=== PATIENT | female | born 1980 | race Caucasian/White ===

== ENCOUNTER 2021-01-07 11:50 | Inpatient (IN) | payer OTHER ==
[2021-01-07] MEDS ORDERED: Sodium Chloride 0.9% 10 ML Syringe FLUSH PRN ×2 (12:48→17:27)
[2021-01-07] MEDS ORDERED: HYDROmorphone 0.5 MG/0.5 ML Syringe IVPUSH ONE ×2 (12:48→15:22)
--- NOTE | 2021-01-07 12:49 | EDM.PDOC ---
ED HPI GENERAL MEDICAL PROBLEM - General Chief Complaint: Abdominal Pain Stated Complaint: ABDOMINAL PAIN Time Seen by Provider: 01/07/21 12:40 Source of Information: Reports: Patient. Denies: Old Records History Limitations: Reports: Other (no old records) - History of Present Illness INITIAL COMMENTS - FREE TEXT/NARRATIVE: 40 yo female presents with progressive abdominal pain over the past couple of days. No fever. Pain is diffuse, but worse in the lower abdomen. No urinary sx's. Stools are small and a bit on loose side. No pHx of any abdominal surgeries. Is visiting from out of town. Is taking acetaminophen for pain. Has nausea without vomiting. Onset: Gradual Onset Date: 01/04/21 Duration: Day(s):, Getting Worse Location: Reports: Abdomen Quality: Reports: Ache Severity: Moderate Improves with: Reports: Rest Worsens with: Reports: Movement Context: Reports: Other (See HPI) Associated Symptoms: Reports: Nausea/Vomiting (no vomiting). 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 Denies: Black Stool, Bloody Stool, Constipation, Decreased Appetite, Distension, Hematemesis, Vomiting : Reports: No Symptoms Musculoskeletal: Reports: No Symptoms Skin: Reports: No Symptoms ED EXAM, GI/ABD - Physical Exam Exam: See Below Exam Limited By: No Limitations General Appearance: Alert, WD/WN, No Apparent Distress Eyes: Bilateral: Normal Appearance Ears: Normal External Exam, Normal Canal, Hearing Grossly Normal Nose: Normal Inspection, No Blood Throat/Mouth: Normal Inspection, Normal Lips, Normal Oropharynx, Normal Voice, No Airway Compromise Head: Atraumatic, Normocephalic Neck: Normal Inspection Respiratory/Chest: No Respiratory Distress, Lungs Clear, Normal Breath Sounds, No Accessory Muscle Use Cardiovascular: Regular Rate, Rhythm, No Edema GI/Abdominal Exam: Normal Bowel Sounds, Soft, No Distention, Guarding, Rebound, Tender (diffusely). No: Non-Tender, Distended, Rigid Back Exam: Normal Inspection Extremities: Normal Inspection, Normal Range of Motion, Non-Tender, No Pedal Edema Neurological: Alert, Oriented, CN II-XII Intact, Normal Cognition, No Motor/Sensory Deficits Psychiatric: Normal Affect, Normal Mood Skin Exam: Warm, Dry, Intact, Normal Color, No Rash Course - Vital Signs Text/Narrative:: Dr. Felix called @ 1640h Last Recorded V/S: Last Vital Signs Temp 36.6 C 01/07/21 12:45 Pulse 92 01/07/21 16:00 Resp 18 01/07/21 12:45 BP 120/71 01/07/21 16:00 Pulse Ox 98 01/07/21 12:45 - Orders/Labs/Meds Orders: Active Orders 24 hr Category Date Time Status CHLAMYDIA/GC AMPLIFICATION Routine Lab 01/07/21 16:37 Received CULTURE GENITAL [RM] Stat Lab 01/07/21 16:33 Received Sodium Chloride 0.9% [Normal Saline] 90 ml Med 01/07/21 13:30 Active IV ASDIRECTED Sodium Chloride 0.9% [Saline Flush] Med 01/07/21 12:48 Active 10 ml FLUSH ASDIRECTED PRN cefOXitin [Mefoxin] 2 gm Med 01/07/21 16:32 Active Sodium Chloride 0.9% [Normal Saline] 50 ml IV ONETIME Saline Lock Insert [OM.PC] Routine Oth 01/07/21 12:48 Ordered Medication Orders Sodium Chloride (Normal Saline) 90 mls @ 3.5 mls/sec IV ASDIRECTED RENEE Last Admin: 01/07/21 13:39 Dose: 3.5 mls/sec Documented by: DECRMIC Cefoxitin Sodium 2 gm/ Sodium (Chloride) 50 mls @ 100 mls/hr IV ONETIME ONE Stop: 01/07/21 17:01 Sodium Chloride (Sodium Chloride 0.9% 10 Ml Syringe) 10 ml FLUSH ASDIRECTED PRN PRN Reason: Keep Vein Open Last Admin: 01/07/21 13:09 Dose: 10 ml Documented by: HECTOR Labs: Laboratory Tests 01/07/21 01/07/21 01/07/21 Range/Units 13:04 13:04 14:51 WBC 17.2 H (4.5-11.0) K/uL RBC 4.72 (3.30-5.50) M/uL Hgb 13.5 (12.0-15.0) g/dL Hct 41.2 (36.0-48.0) % MCV 87 (80-98) fL MCH 29 (27-31) pg MCHC 33 (32-36) % Plt Count 202 (150-400) K/uL Sodium 134 L (140-148) mmol/L Potassium 3.6 (3.6-5.2) mmol/L Chloride 98 L (100-108) mmol/L Carbon Dioxide 27 (21-32) mmol/L Anion Gap 12.6 (5.0-14.0) mmol/L BUN 10 (7-18) mg/dL Creatinine 0.9 (0.6-1.0) mg/dL Est Cr Clr Drug Dosing 85.50 mL/min Estimated GFR (MDRD) > 60 (>60) Glucose 101 (74-106) mg/dL Calcium 8.9 (8.5-10.1) mg/dL Total Bilirubin 1.0 (0.2-1.0) mg/dL AST 9 L (15-37) U/L ALT 19 (12-78) U/L Alkaline Phosphatase 84 (46-116) U/L C-Reactive Protein 30.55 H (0.0-0.3) mg/dL Total Protein 6.9 (6.4-8.2) g/dL Albumin 3.3 L (3.4-5.0) g/dL Globulin 3.6 H (2.3-3.5) g/dL Albumin/Globulin Ratio 0.9 L (1.2-2.2) Urine Color Yellow (YELLOW) Urine Appearance Clear (CLEAR) Urine pH 5.5 (5.0-8.0) Ur Specific [place] 1.010 (1.008-1.030) Urine Protein Negative (NEGATIVE) mg/dL Urine Glucose (UA) Negative (NEGATIVE) mg/dL Urine Ketones 15 H (NEGATIVE) mg/dL Urine Occult Blood Moderate H (NEGATIVE) Urine Nitrite Negative (NEGATIVE) Urine Bilirubin Negative (NEGATIVE) Urine Urobilinogen 0.2 (0.2-1.0) EU/dL Ur Leukocyte Esterase Trace H (NEGATIVE) Urine RBC 10-20 H (0-5) Urine WBC 5-10 H (0-5) Ur Epithelial Cells Many Amorphous Sediment Few Urine Bacteria Moderate Urine Mucus Not seen Meds: Medications Generic Name Dose Route Start Last Admin Trade Name Audrey PRN Reason Stop Dose Admin Sodium Chloride 90 mls @ 3.5 mls/sec 01/07/21 13:30 01/07/21 13:39 Normal Saline IV 3.5 mls/sec ASDIRECTED RENEE Administration Cefoxitin Sodium 2 gm/ Sodium 50 mls @ 100 mls/hr 01/07/21 16:32 Chloride IV 01/07/21 17:01 ONETIME ONE Sodium Chloride 10 ml 01/07/21 12:48 01/07/21 13:09 Sodium Chloride 0.9% 10 Ml Syringe FLUSH 10 ml ASDIRECTED PRN Administration Keep Vein Open Discontinued Medications Generic Name Dose Route Start Last Admin Trade Name Audrey PRN Reason Stop Dose Admin Doxycycline Hyclate 100 mg 01/07/21 16:33 Doxycycline 100 Mg Cap PO 01/07/21 16:34 ONETIME ONE Hydromorphone HCl 0.5 mg 01/07/21 12:48 01/07/21 13:09 Hydromorphone 0.5 Mg/0.5 Ml Syringe IVPUSH 01/07/21 12:49 0.5 mg ONETIME ONE Administration Hydromorphone HCl 0.5 mg 01/07/21 15:22 01/07/21 15:26 Hydromorphone 0.5 Mg/0.5 Ml Syringe IVPUSH 01/07/21 15:23 0.5 mg ONETIME ONE Administration Iopamidol 150 ml 01/07/21 13:30 01/07/21 13:39 Iopamidol 612 Mg/Ml 500 Ml Multipack Bottle IV 01/07/21 13:31 150 ml ONETIME ONE Administration Ketorolac Tromethamine 30 mg 01/07/21 16:29 Ketorolac 30 Mg/Ml Sdv IVPUSH 01/07/21 16:30 ONETIME ONE Ondansetron HCl 4 mg 01/07/21 12:51 01/07/21 13:04 Ondansetron 4 Mg Tab.Dis PO 01/07/21 12:52 4 mg ONETIME ONE Administration Simethicone 160 mg 01/07/21 15:21 01/07/21 15:26 Simethicone 80 Mg Tab.Chew PO 01/07/21 15:22 160 mg ONETIME ONE Administration - Radiology Interpretation Free Text/Narrative:: CT abd/pelvis with IV contrast- IMPRESSION : 1. Normal caliber appendix with no surrounding periappendiceal fat stranding. 2. Very minimal trace fluid or linear stranding in pelvis. Correlate with pelvic exam symptoms to exclude mild pelvic inflammatory disease. 3. Early fatty infiltration of the liver. 4. Epigastric abdominal wall hernia/diastasis. Please note that all CT scans at this facility use dose modulation, iterative reconstruction, and/or weight-based dosing when appropriate to reduce radiation dose to as low as reasonably achievable. Dictated by Uriel Nuno MD @ 01/07/2021 2:34:28 PM (Electronic Signature) - Re-Assessments/Exams Free Text/Narrative Re-Assessment/Exam: 01/07/21 16:34 When no clinical answer with CT scan, did a pelvic exam that showed much cervical motion tenderness. Speculum exam revealed jean paul pus from her cervix. Cultures obtained and her Mirena IUD was removed. Cetoxitin 2 gm IV and Doxycycline 100 mg po ordered. Toradol 30 mg IV for pain relief. Departure - Departure Time of Disposition: 17:00 Disposition: Admitted As Inpatient 68 Condition: Fair Clinical Impression: PID (acute pelvic inflammatory disease) - Discharge Information *PRESCRIPTION DRUG MONITORING PROGRAM REVIEWED*: Not Applicable *COPY OF PRESCRIPTION DRUG MONITORING REPORT IN PATIENT MCKENZIE: Not Applicable Referrals: PCP,None [Primary Care Provider] - Forms: ED Department Discharge Sepsis Event Note (ED) - Evaluation Sepsis Screening Result: Possible Sepsis Risk - Focused Exam Vital Signs: Vital Signs Temp Pulse Resp BP Pulse Ox 01/07/21 16:00 92 120/71 01/07/21 12:45 36.6 C 101 H 18 130/85 98 01/07/21 12:39 36.6 C 101 H 18 130/85 98 - My Orders Last 24 Hours: My Active Orders 01/07/21 12:48 Sodium Chloride 0.9% [Saline Flush] 10 ml FLUSH ASDIRECTED PRN Saline Lock Insert [OM.PC] Routine 01/07/21 13:30 Sodium Chloride 0.9% [Normal Saline] 90 ml IV ASDIRECTED 01/07/21 16:32 cefOXitin [Mefoxin] 2 gm Sodium Chloride 0.9% [Normal Saline] 50 ml IV ONETIME 01/07/21 16:33 CULTURE GENITAL [RM] Stat 01/07/21 16:37 CHLAMYDIA/GC AMPLIFICATION Routine - Assessment/Plan Last 24 Hours: My Active Orders 01/07/21 12:48 Sodium Chloride 0.9% [Saline Flush] 10 ml FLUSH ASDIRECTED PRN Saline Lock Insert [OM.PC] Routine 01/07/21 13:30 Sodium Chloride 0.9% [Normal Saline] 90 ml IV ASDIRECTED 01/07/21 16:32 cefOXitin [Mefoxin] 2 gm Sodium Chloride 0.9% [Normal Saline] 50 ml IV ONETIME 01/07/21 16:33 CULTURE GENITAL [RM] Stat 01/07/21 16:37 CHLAMYDIA/GC AMPLIFICATION Routine
[2021-01-07] MEDS ORDERED: Ondansetron 4 MG Tab.DIS PO ONE (12:51)
[2021-01-07] MEDS ORDERED: Sodium Chloride 0.9% 90 ML IV SCH (13:30)
[2021-01-07] MEDS ORDERED: Iopamidol 612 MG/ML 500 ML Multipack Bottle IV ONE (13:30)
--- NOTE | 2021-01-07 14:35 | CRLCT ---
For Patients: As a result of the Century Cures Act, medical imaging exams and procedure reports are released immediately into your electronic medical record. You may view this report before your referring provider. If you have questions, please contact your health care provider. INDICATION : Elevated white blood cell count. Abdominal pain. TECHNIQUE : CT scan of the abdomen and pelvis. IV CONTRAST 150 cc, [id number]. COMPARISON: No comparison FINDINGS : Lung bases: Clear. Liver: Mild decreased attenuation. No mass. Gallbladder: No calcified gallstones. Spleen: Normal size. Pancreas: No suspicious mass or ductal dilatation. Adrenal glands: No suspicious mass. Kidneys: No mass lesion or hydronephrosis. Normal size and position. Bladder: No suspicious mass or abnormal wall thickening. GI tract: No abnormal wall thickening or dilatation. No mesenteric abnormality. Retroperitoneum: No adenopathy. No suspicious mass. Aorta and vessels: No aneurysmal dilatation. Pelvis: No mass, free fluid or adenopathy. Some very subtle fat stranding in the lower pelvis some trace fluid or thickening near the level of the uterus. Skeletal structures: No suspicious skeletal lesions. Miscellaneous: Diastasis of the rectus abdominus muscles. A ventral hernia or eventration is present containing fat but no bowel loops. An IUD is present within the endometrial cavity. The positioning is satisfactory. IMPRESSION : 1. Normal caliber appendix with no surrounding periappendiceal fat stranding. 2. Very minimal trace fluid or linear stranding in pelvis. Correlate with pelvic exam symptoms to exclude mild pelvic inflammatory disease. 3. Early fatty infiltration of the liver. 4. Epigastric abdominal wall hernia/diastasis. Please note that all CT scans at this facility use dose modulation, iterative reconstruction, and/or weight-based dosing when appropriate to reduce radiation dose to as low as reasonably achievable. Dictated by Uriel Nuno MD @ 01/07/2021 2:34:[address] Uriel Nuno @ Jan 07 2021 2:34PM
[2021-01-07] MEDS ORDERED: Simethicone 80 MG Tab.Chew PO ONE (15:21)
[2021-01-07] MEDS ORDERED: Ketorolac 30 MG/ML SDV IVPUSH ONE (16:29)
[2021-01-07] MEDS ORDERED: cefOXitin 2 GM in Sodium Chloride 0.9% 50 ML IV ONE (16:32)
[2021-01-07] MEDS ORDERED: Doxycycline 100 MG Cap PO ONE (16:33)
--- NOTE | 2021-01-07 16:54 | PCM.HP.2 ---
H&P History of Present Illness - General Date of Service: 01/07/21 Admit Problem/Dx: Admission Diagnosis/Problem Admission Diagnosis/Problem Abdominal pain Source of Information: Patient, Provider, RN Notes Reviewed History Limitations: Reports: No Limitations - History of Present Illness Initial Comments - Free Text/Narative: Ms. Clement is a 40-year-old woman who was admitted through the emergency department with abdominal pain and nausea secondary to pelvic inflammatory disease. She has not felt well over the past 2 days, during that period of time is developed progressive abdominal pain, nausea, and fever. Symptoms were very severe today so she presented to the emergency department for further evaluation. White blood cell count is elevated, but CT scan showed no obvious cause of symptoms other than mild inflammation in the pelvis. Pelvic exam was performed by Dr. Morris and did show jean paul pus coming from the cervix. She did have an IUD in place and this was removed at the time of pelvic exam. Cultures were obtained and she has been started on IV antibiotic therapy with cefoxitin and doxycycline. 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 Denies: Constipation, Diarrhea, Difficulty Swallowing, Hematemesis, Hematochezia, Melena, Vomiting Genitourinary: Reports: No Symptoms Musculoskeletal: Reports: No Symptoms Skin: Reports: No Symptoms Psychiatric: Reports: No Symptoms Neurological: Reports: No Symptoms Hematologic/Lymphatic: Reports: No Symptoms Immunologic: Reports: No Symptoms Exam - Exam Exam: See Below - Vital Signs Vital Signs: Last Vital Signs Temp 97.9 F 01/07/21 12:45 Pulse 92 01/07/21 16:00 Resp 18 01/07/21 12:45 BP 120/71 01/07/21 16:00 Pulse Ox 98 01/07/21 12:45 Weight: 220 lb - Exam Quality Assessment: DVT Prophylaxis General: Alert, Oriented, Cooperative, Moderate Distress HEENT: Conjunctiva Clear, Hearing Intact, Normal Nasal Septum, Posterior Pharynx Clear, Pupils Equal. No: Mucosa Moist & [place] Neck: Supple, Trachea Midline, +2 Carotid Pulse wo Bruit Lungs: Clear to Auscultation, Normal Respiratory Effort Cardiovascular: Regular Rate, Regular Rhythm, Normal S1, Normal S2. No: Systolic Murmur, Diastolic Murmur GI/Abdominal Exam: Soft, Distended, Guarding, Rebound, Tender. No: Rigid Back Exam: Normal Inspection, Full Range of Motion Extremities: Non-Tender, No Pedal Edema Skin: Warm, Dry, Intact Neurological: Cranial Nerves Intact, Strength Equal Bilateral, Normal Speech, Normal Tone, Sensation Intact. No: Focal Deficit Neuro Extensive - Mental Status: Alert, Oriented x3, Normal Mood/Affect, Normal Cognition, Memory Intact - Patient Data Lab Results Last 24 hrs: Laboratory Results - last 24 hr 01/07/21 01/07/21 01/07/21 Range/Units 13:04 13:04 14:51 WBC 17.2 H (4.5-11.0) K/uL RBC 4.72 (3.30-5.50) M/uL Hgb 13.5 (12.0-15.0) g/dL Hct 41.2 (36.0-48.0) % MCV 87 (80-98) fL MCH 29 (27-31) pg MCHC 33 (32-36) % Plt Count 202 (150-400) K/uL Sodium 134 L (140-148) mmol/L Potassium 3.6 (3.6-5.2) mmol/L Chloride 98 L (100-108) mmol/L Carbon Dioxide 27 (21-32) mmol/L Anion Gap 12.6 (5.0-14.0) mmol/L BUN 10 (7-18) mg/dL Creatinine 0.9 (0.6-1.0) mg/dL Est Cr Clr Drug Dosing 85.50 mL/min Estimated GFR (MDRD) > 60 (>60) Glucose 101 (74-106) mg/dL Calcium 8.9 (8.5-10.1) mg/dL Total Bilirubin 1.0 (0.2-1.0) mg/dL AST 9 L (15-37) U/L ALT 19 (12-78) U/L Alkaline Phosphatase 84 (46-116) U/L C-Reactive Protein 30.55 H (0.0-0.3) mg/dL Total Protein 6.9 (6.4-8.2) g/dL Albumin 3.3 L (3.4-5.0) g/dL Globulin 3.6 H (2.3-3.5) g/dL Albumin/Globulin Ratio 0.9 L (1.2-2.2) Urine Color Yellow (YELLOW) Urine Appearance Clear (CLEAR) Urine pH 5.5 (5.0-8.0) Ur Specific [place] 1.010 (1.008-1.030) Urine Protein Negative (NEGATIVE) mg/dL Urine Glucose (UA) Negative (NEGATIVE) mg/dL Urine Ketones 15 H (NEGATIVE) mg/dL Urine Occult Blood Moderate H (NEGATIVE) Urine Nitrite Negative (NEGATIVE) Urine Bilirubin Negative (NEGATIVE) Urine Urobilinogen 0.2 (0.2-1.0) EU/dL Ur Leukocyte Esterase Trace H (NEGATIVE) Urine RBC 10-20 H (0-5) Urine WBC 5-10 H (0-5) Ur Epithelial Cells Many Amorphous Sediment Few Urine Bacteria Moderate Urine Mucus Not seen Result Diagrams: 01/07/21 13:04 01/07/21 13:04 Sepsis Event Note - Evaluation Sepsis Screening Result: Possible Sepsis Risk - Focused Exam Vital Signs: Vital Signs Temp Pulse Resp BP Pulse Ox 01/07/21 16:00 92 120/71 01/07/21 12:45 97.9 F 101 H 18 130/85 98 01/07/21 12:39 97.9 F 101 H 18 130/85 98 *Q Meaningful Use (ADM) - VTE Risk Assess *Q Each Risk Factor Represents 1 Point: Obesity ( BMI > 25 kg/m2) Total Score 1 Point Risk Factors: 1 Each Risk Factor Represents 2 Points: None Total Score 2 Point Risk Factors: 0 Each Risk Factor Represents 3 Points: None Total Score 3 Point Risk Factors: 0 Each Risk Factor Represents 5 Points: None Total Score 5 Point Risk Factors: 0 Venous Thromboembolism Risk Factor Score *Q: 1 Problem List Initiated/Reviewed/Updated: Yes Orders Last 24hrs: Active Orders 24 hr Category Date Time Status Patient Status Manage Transfer [TRANSFER] Routine ADT 01/07/21 16:46 Active CHLAMYDIA/GC AMPLIFICATION Routine Lab 01/07/21 16:37 Received CULTURE GENITAL [RM] Stat Lab 01/07/21 16:33 Received Sodium Chloride 0.9% [Normal Saline] 90 ml Med 01/07/21 13:30 Active IV ASDIRECTED Sodium Chloride 0.9% [Saline Flush] Med 01/07/21 12:48 Active 10 ml FLUSH ASDIRECTED PRN cefOXitin [Mefoxin] 2 gm Med 01/07/21 16:32 Active Sodium Chloride 0.9% [Normal Saline] 50 ml IV ONETIME Saline Lock Insert [OM.PC] Routine Oth 01/07/21 12:48 Ordered Resuscitation Status Routine Resus Stat 01/07/21 16:48 Ordered Medication Orders Sodium Chloride (Normal Saline) 90 mls @ 3.5 mls/sec IV ASDIRECTED RENEE Last Admin: 01/07/21 13:39 Dose: 3.5 mls/sec Documented by: TITO Cefoxitin Sodium 2 gm/ Sodium (Chloride) 50 mls @ 100 mls/hr IV ONETIME ONE Stop: 01/07/21 17:01 Last Admin: 01/07/21 16:44 Dose: 100 mls/hr Documented by: HECTOR Sodium Chloride (Sodium Chloride 0.9% 10 Ml Syringe) 10 ml FLUSH ASDIRECTED PRN PRN Reason: Keep Vein Open Last Admin: 01/07/21 13:09 Dose: 10 ml Documented by: HECTOR Assessment/Plan Comment:: ASSESSMENT AND PLAN PELVIC INFLAMMATORY DISEASE-likely secondary to her IUD. IUD was removed at the time of pelvic exam. She was noted to have jean paul pus on exam and cultures are pending. -Pain and nausea medication as needed -Cefoxitin 2 g IV every 6 hours -Doxycycline 100 mg IV every 12 hours -IV fluids for hydration MAINTENANCE ISSUES -DVT prophylaxis; ambulation -GI prophylaxis; not indicated -Sloan catheter; not indicated -Nutrition; regular diet -Nicotine dependence; nicotine patch and nicotine gum CODE STATUS-FULL CODE ADMISSION STATUS-patient will be admitted to inpatient status, expect at least a 2 night hospital stay for evaluation and management of problems as outlined above. At the time of this admission I do not reasonably expected evaluation and management of this problem will require more than a 96 hour hospital stay. DISPOSITION-anticipate discharge to home after the hospital stay. - Mortality Measure Prognosis:: Good
[2021-01-07] MEDS ORDERED: Acetaminophen 325 MG Tab PO PRN (17:27)
[2021-01-07] MEDS ORDERED: Polyethylene Glycol 3350 Powder 17 GM Packet PO PRN (17:27)
[2021-01-07] MEDS ORDERED: Ondansetron 4 MG/2 ML SDV IV PRN (17:27)
[2021-01-07] MEDS: HYDROmorphone 0.5 MG/0.5 ML Syringe IVPUSH PRN ×2 (18:20→21:16)
[2021-01-07] MEDS: Sodium Chloride 0.9% 1,000 ML IV SCH (18:20)
[2021-01-07] MEDS ORDERED: Nicotine Polacrilex 2 MG Gum CHEW PRN (18:25)
[2021-01-07] MEDS: Nicotine 21 MG/24 Hr Patch TRDERM SCH (20:18)
[2021-01-07] MEDS: cefOXitin 2 GM in Sodium Chloride 0.9% 50 ML IV SCH (22:19)
[2021-01-08] MEDS: Sodium Chloride 0.9% 1,000 ML IV SCH ×3 (01:58→22:04)
[2021-01-08] MEDS: HYDROmorphone 0.5 MG/0.5 ML Syringe IVPUSH PRN ×6 (02:00→22:02)
[2021-01-08] MEDS: cefOXitin 2 GM in Sodium Chloride 0.9% 50 ML IV SCH ×4 (04:00→22:03)
[2021-01-08] MEDS: Doxycycline 100 MG in Sodium Chloride 0.9% 100 ML IV SCH ×2 (05:01→18:11)
[2021-01-08] MEDS: Amphetamine/Dextroamphetamine Salts 10 MG Cap.ER PO SCH (08:01)
[2021-01-08] MEDS: Nicotine 21 MG/24 Hr Patch TRDERM SCH (08:01)
--- NOTE | 2021-01-08 10:57 | PCM.PN ---
- General Info Date of Service: 01/08/21 Subjective Update: Ms. Clement has improved somewhat since admission with less abdominal pain. Vital signs have been stable and she has been afebrile. White blood cell count has normalized. Functional Status: Reports: Urinating. Denies: Tolerating Diet - Review of Systems General: Reports: Weakness, Fatigue. Denies: Fever, Chills Pulmonary: Reports: No Symptoms Cardiovascular: Reports: No Symptoms Gastrointestinal: Reports: Abdominal Pain, Decreased Appetite, Nausea. Denies: Diarrhea, Difficulty Swallowing, Hematochezia, Melena, Vomiting Genitourinary: Reports: No Symptoms - Patient Data Vitals - Most Recent: Last Vital Signs Temp 96.2 F L 01/08/21 07:57 Pulse 93 01/08/21 07:57 Resp 18 01/08/21 07:57 BP 102/56 L 01/08/21 07:57 Pulse Ox 96 01/08/21 07:57 Weight - Most Recent: 212 lb 4.882 oz I&O - Last 24 Hours: Intake & Output 01/07/21 01/08/21 01/08/21 22:59 06:59 14:59 Intake Total 720 1430 Balance 720 1430 Lab Results Last 24 Hours: Laboratory Results - last 24 hr 01/07/21 01/07/21 01/07/21 Range/Units 13:04 13:04 14:51 WBC 17.2 H (4.5-11.0) K/uL RBC 4.72 (3.30-5.50) M/uL Hgb 13.5 (12.0-15.0) g/dL Hct 41.2 (36.0-48.0) % MCV 87 (80-98) fL MCH 29 (27-31) pg MCHC 33 (32-36) % Plt Count 202 (150-400) K/uL Neut % (Auto) (36-66) % Lymph % (Auto) (24-44) % [place] % (Auto) (2-6) % Eos % (Auto) (2-4) % Baso % (Auto) (0-1) % Sodium 134 L (140-148) mmol/L Potassium 3.6 (3.6-5.2) mmol/L Chloride 98 L (100-108) mmol/L Carbon Dioxide 27 (21-32) mmol/L Anion Gap 12.6 (5.0-14.0) mmol/L BUN 10 (7-18) mg/dL Creatinine 0.9 (0.6-1.0) mg/dL Est Cr Clr Drug Dosing 85.50 mL/min Estimated GFR (MDRD) > 60 (>60) Glucose 101 (74-106) mg/dL Calcium 8.9 (8.5-10.1) mg/dL Total Bilirubin 1.0 (0.2-1.0) mg/dL AST 9 L (15-37) U/L ALT 19 (12-78) U/L Alkaline Phosphatase 84 (46-116) U/L C-Reactive Protein 30.55 H (0.0-0.3) mg/dL Total Protein 6.9 (6.4-8.2) g/dL Albumin 3.3 L (3.4-5.0) g/dL Globulin 3.6 H (2.3-3.5) g/dL Albumin/Globulin Ratio 0.9 L (1.2-2.2) Urine Color Yellow (YELLOW) Urine Appearance Clear (CLEAR) Urine pH 5.5 (5.0-8.0) Ur Specific [place] 1.010 (1.008-1.030) Urine Protein Negative (NEGATIVE) mg/dL Urine Glucose (UA) Negative (NEGATIVE) mg/dL Urine Ketones 15 H (NEGATIVE) mg/dL Urine Occult Blood Moderate H (NEGATIVE) Urine Nitrite Negative (NEGATIVE) Urine Bilirubin Negative (NEGATIVE) Urine Urobilinogen 0.2 (0.2-1.0) EU/dL Ur Leukocyte Esterase Trace H (NEGATIVE) Urine RBC 10-20 H (0-5) Urine WBC 5-10 H (0-5) Ur Epithelial Cells Many Amorphous Sediment Few Urine Bacteria Moderate Urine Mucus Not seen 01/08/21 01/08/21 Range/Units 04:43 04:43 WBC 10.7 (4.5-11.0) K/uL RBC 4.09 (3.30-5.50) M/uL Hgb 11.5 L D (12.0-15.0) g/dL Hct 36.4 (36.0-48.0) % MCV 89 (80-98) fL MCH 28 (27-31) pg MCHC 32 (32-36) % Plt Count 182 (150-400) K/uL Neut % (Auto) 76.3 H (36-66) % Lymph % (Auto) 17.3 L (24-44) % [place] % (Auto) 5.8 (2-6) % Eos % (Auto) 0.4 L (2-4) % Baso % (Auto) 0.2 (0-1) % Sodium 139 L (140-148) mmol/L Potassium 3.7 (3.6-5.2) mmol/L Chloride 104 (100-108) mmol/L Carbon Dioxide 25 (21-32) mmol/L Anion Gap 13.7 (5.0-14.0) mmol/L BUN 15 (7-18) mg/dL Creatinine 1.4 H D (0.6-1.0) mg/dL Est Cr Clr Drug Dosing 54.96 mL/min Estimated GFR (MDRD) 42 L (>60) Glucose 107 H (74-106) mg/dL Calcium 8.2 L (8.5-10.1) mg/dL Total Bilirubin (0.2-1.0) mg/dL AST (15-37) U/L ALT (12-78) U/L Alkaline Phosphatase (46-116) U/L C-Reactive Protein (0.0-0.3) mg/dL Total Protein (6.4-8.2) g/dL Albumin (3.4-5.0) g/dL Globulin (2.3-3.5) g/dL Albumin/Globulin Ratio (1.2-2.2) Urine Color (YELLOW) Urine Appearance (CLEAR) Urine pH (5.0-8.0) Ur Specific [place] (1.008-1.030) Urine Protein (NEGATIVE) mg/dL Urine Glucose (UA) (NEGATIVE) mg/dL Urine Ketones (NEGATIVE) mg/dL Urine Occult Blood (NEGATIVE) Urine Nitrite (NEGATIVE) Urine Bilirubin (NEGATIVE) Urine Urobilinogen (0.2-1.0) EU/dL Ur Leukocyte Esterase (NEGATIVE) Urine RBC (0-5) Urine WBC (0-5) Ur Epithelial Cells Amorphous Sediment Urine Bacteria Urine Mucus Med Orders - Current: Current Medications Acetaminophen (Acetaminophen 325 Mg Tab) 650 mg PO Q4H PRN PRN Reason: Pain (Mild 1-3)/fever Amphetamine/Dextroamphetamine (Amphetamine/Dextroamphetamine Salts 10 Mg Cap.Er) 20 mg PO DAILY [facility] Last Admin: 01/08/21 08:01 Dose: Not Given Documented by: Hydromorphone HCl (Hydromorphone 0.5 Mg/0.5 Ml Syringe) 0.5 mg IVPUSH Q2H PRN PRN Reason: Pain Last Admin: 01/08/21 08:06 Dose: 0.5 mg Documented by: Sodium Chloride (Normal Saline) 1,000 mls @ 125 mls/hr IV ASDIRECTED [facility] Last Admin: 01/08/21 01:58 Dose: 125 mls/hr Documented by: Doxycycline Hyclate 100 mg/ (Sodium Chloride) 100 mls @ 100 mls/hr IV Q12H [facility] Last Admin: 01/08/21 05:01 Dose: 100 mls/hr Documented by: Cefoxitin Sodium 2 gm/ Sodium (Chloride) 50 mls @ 100 mls/hr IV Q6H [facility] Last Admin: 01/08/21 04:00 Dose: 100 mls/hr Documented by: Nicotine (Nicotine 21 Mg/24 Hr Patch) 21 mg TRDERM DAILY [facility] Last Admin: 01/08/21 08:01 Dose: Not Given Documented by: Nicotine Polacrilex (Nicotine Polacrilex 2 Mg Gum) 2 mg CHEW Q1H PRN PRN Reason: Other Ondansetron HCl (Ondansetron 4 Mg/2 Ml Sdv) 4 mg IV Q4H PRN PRN Reason: Nausea/Vomiting Polyethylene Glycol (Polyethylene Glycol 3350 Powder 17 Gm Packet) 17 gm PO DAILY PRN PRN Reason: Constipation Sodium Chloride (Sodium Chloride 0.9% 10 Ml Syringe) 10 ml FLUSH ASDIRECTED PRN PRN Reason: Keep Vein Open Discontinued Medications Doxycycline Hyclate (Doxycycline 100 Mg Cap) 100 mg PO ONETIME ONE Stop: 01/07/21 16:34 Last Admin: 01/07/21 16:45 Dose: 100 mg Documented by: Hydromorphone HCl (Hydromorphone 0.5 Mg/0.5 Ml Syringe) 0.5 mg IVPUSH ONETIME ONE Stop: 01/07/21 12:49 Last Admin: 01/07/21 13:09 Dose: 0.5 mg Documented by: Hydromorphone HCl (Hydromorphone 0.5 Mg/0.5 Ml Syringe) 0.5 mg IVPUSH ONETIME ONE Stop: 01/07/21 15:23 Last Admin: 01/07/21 15:26 Dose: 0.5 mg Documented by: Sodium Chloride (Normal Saline) 90 mls @ 3.5 mls/sec IV ASDIRECTED [facility] Last Admin: 01/07/21 13:39 Dose: 3.5 mls/sec Documented by: Cefoxitin Sodium 2 gm/ Sodium (Chloride) 50 mls @ 100 mls/hr IV ONETIME ONE Stop: 01/07/21 17:01 Last Admin: 01/07/21 16:44 Dose: 100 mls/hr Documented by: Iopamidol (Iopamidol 612 Mg/Ml 500 Ml Multipack Bottle) 150 ml IV ONETIME ONE Stop: 01/07/21 13:31 Last Admin: 01/07/21 13:39 Dose: 150 ml Documented by: Ketorolac Tromethamine (Ketorolac 30 Mg/Ml Sdv) 30 mg IVPUSH ONETIME ONE Stop: 01/07/21 16:30 Last Admin: 01/07/21 16:46 Dose: 30 mg Documented by: Ondansetron HCl (Ondansetron 4 Mg Tab.Dis) 4 mg PO ONETIME ONE Stop: 01/07/21 12:52 Last Admin: 01/07/21 13:04 Dose: 4 mg Documented by: Simethicone (Simethicone 80 Mg Tab.Chew) 160 mg PO ONETIME ONE Stop: 01/07/21 15:22 Last Admin: 01/07/21 15:26 Dose: 160 mg Documented by: Sodium Chloride (Sodium Chloride 0.9% 10 Ml Syringe) 10 ml FLUSH ASDIRECTED PRN PRN Reason: Keep Vein Open Last Admin: 01/07/21 13:09 Dose: 10 ml Documented by: - Exam Quality Assessment: DVT Prophylaxis General: Alert, Oriented, Cooperative, Moderate Distress Lungs: Clear to Auscultation, Normal Respiratory Effort Cardiovascular: Regular Rate, Regular Rhythm, No Murmurs GI/Abdominal Exam: Soft, No Organomegaly, Tender. No: Distended, Guarding, Rigid, Rebound Extremities: Non-Tender, No Pedal Edema - Patient Data Lab Results Last 24 hrs: Laboratory Results - last 24 hr 01/07/21 01/07/21 01/07/21 Range/Units 13:04 13:04 14:51 WBC 17.2 H (4.5-11.0) K/uL RBC 4.72 (3.30-5.50) M/uL Hgb 13.5 (12.0-15.0) g/dL Hct 41.2 (36.0-48.0) % MCV 87 (80-98) fL MCH 29 (27-31) pg MCHC 33 (32-36) % Plt Count 202 (150-400) K/uL Neut % (Auto) (36-66) % Lymph % (Auto) (24-44) % [place] % (Auto) (2-6) % Eos % (Auto) (2-4) % Baso % (Auto) (0-1) % Sodium 134 L (140-148) mmol/L Potassium 3.6 (3.6-5.2) mmol/L Chloride 98 L (100-108) mmol/L Carbon Dioxide 27 (21-32) mmol/L Anion Gap 12.6 (5.0-14.0) mmol/L BUN 10 (7-18) mg/dL Creatinine 0.9 (0.6-1.0) mg/dL Est Cr Clr Drug Dosing 85.50 mL/min Estimated GFR (MDRD) > 60 (>60) Glucose 101 (74-106) mg/dL Calcium 8.9 (8.5-10.1) mg/dL Total Bilirubin 1.0 (0.2-1.0) mg/dL AST 9 L (15-37) U/L ALT 19 (12-78) U/L Alkaline Phosphatase 84 (46-116) U/L C-Reactive Protein 30.55 H (0.0-0.3) mg/dL Total Protein 6.9 (6.4-8.2) g/dL Albumin 3.3 L (3.4-5.0) g/dL Globulin 3.6 H (2.3-3.5) g/dL Albumin/Globulin Ratio 0.9 L (1.2-2.2) Urine Color Yellow (YELLOW) Urine Appearance Clear (CLEAR) Urine pH 5.5 (5.0-8.0) Ur Specific [place] 1.010 (1.008-1.030) Urine Protein Negative (NEGATIVE) mg/dL Urine Glucose (UA) Negative (NEGATIVE) mg/dL Urine Ketones 15 H (NEGATIVE) mg/dL Urine Occult Blood Moderate H (NEGATIVE) Urine Nitrite Negative (NEGATIVE) Urine Bilirubin Negative (NEGATIVE) Urine Urobilinogen 0.2 (0.2-1.0) EU/dL Ur Leukocyte Esterase Trace H (NEGATIVE) Urine RBC 10-20 H (0-5) Urine WBC 5-10 H (0-5) Ur Epithelial Cells Many Amorphous Sediment Few Urine Bacteria Moderate Urine Mucus Not seen 01/08/21 01/08/21 Range/Units 04:43 04:43 WBC 10.7 (4.5-11.0) K/uL RBC 4.09 (3.30-5.50) M/uL Hgb 11.5 L D (12.0-15.0) g/dL Hct 36.4 (36.0-48.0) % MCV 89 (80-98) fL MCH 28 (27-31) pg MCHC 32 (32-36) % Plt Count 182 (150-400) K/uL Neut % (Auto) 76.3 H (36-66) % Lymph % (Auto) 17.3 L (24-44) % [place] % (Auto) 5.8 (2-6) % Eos % (Auto) 0.4 L (2-4) % Baso % (Auto) 0.2 (0-1) % Sodium 139 L (140-148) mmol/L Potassium 3.7 (3.6-5.2) mmol/L Chloride 104 (100-108) mmol/L Carbon Dioxide 25 (21-32) mmol/L Anion Gap 13.7 (5.0-14.0) mmol/L BUN 15 (7-18) mg/dL Creatinine 1.4 H D (0.6-1.0) mg/dL Est Cr Clr Drug Dosing 54.96 mL/min Estimated GFR (MDRD) 42 L (>60) Glucose 107 H (74-106) mg/dL Calcium 8.2 L (8.5-10.1) mg/dL Total Bilirubin (0.2-1.0) mg/dL AST (15-37) U/L ALT (12-78) U/L Alkaline Phosphatase (46-116) U/L C-Reactive Protein (0.0-0.3) mg/dL Total Protein (6.4-8.2) g/dL Albumin (3.4-5.0) g/dL Globulin (2.3-3.5) g/dL Albumin/Globulin Ratio (1.2-2.2) Urine Color (YELLOW) Urine Appearance (CLEAR) Urine pH (5.0-8.0) Ur Specific [place] (1.008-1.030) Urine Protein (NEGATIVE) mg/dL Urine Glucose (UA) (NEGATIVE) mg/dL Urine Ketones (NEGATIVE) mg/dL Urine Occult Blood (NEGATIVE) Urine Nitrite (NEGATIVE) Urine Bilirubin (NEGATIVE) Urine Urobilinogen (0.2-1.0) EU/dL Ur Leukocyte Esterase (NEGATIVE) Urine RBC (0-5) Urine WBC (0-5) Ur Epithelial Cells Amorphous Sediment Urine Bacteria Urine Mucus Result Diagrams: 01/08/21 04:43 01/08/21 04:43 Sepsis Event Note - Evaluation Sepsis Screening Result: Possible Sepsis Risk - Focused Exam Vital Signs: Vital Signs Temp Pulse Resp BP Pulse Ox 01/08/21 07:57 96.2 F L 93 18 102/56 L 96 01/08/21 07:00 92 L 01/08/21 03:56 98.0 F 100 16 97/47 L 93 L 01/08/21 00:18 93 L 01/07/21 23:22 96.4 F L 94 16 104/56 L 98 - Problem List Review Problem List Initiated/Reviewed/Updated: Yes - My Orders Last 24 Hours: My Active Orders 01/07/21 16:48 Resuscitation Status Routine 01/07/21 Dinner Regular Diet [DIET] 01/07/21 17:27 Acetaminophen [TylenoL] 650 mg PO Q4H PRN HYDROmorphone [Dilaudid] 0.5 mg IVPUSH Q2H PRN Ondansetron [Zofran] 4 mg IV Q4H PRN Sodium Chloride 0.9% [Normal Saline] 1,000 ml IV ASDIRECTED Sodium Chloride 0.9% [Saline Flush] 10 ml FLUSH ASDIRECTED PRN polyethylene glycoL 3350 [MiraLAX] 17 gm PO DAILY PRN 01/07/21 17:27 Patient Status [ADT] Routine Ambulate [RC] QID Ambulate [RC] QID Height and Weight [RC] 0500 Intake and Output [RC] QSHIFT Notify Provider Vital Signs [RC] ASDIRECTED Oxygen Therapy [RC] PRN Peripheral IV Care [RC] Q12H Up ad Sabrina [RC] ASDIRECTED Up to Chair [RC] QID VTE/DVT Education [RC] Per Unit Routine Vital Signs [RC] Q4H Peripheral IV Insertion Adult [OM.PC] Routine Pulse Oximetry Continuous Monitoring [OM.PC] Routine 01/07/21 18:25 Nicotine Polacrilex [Nicorelief] 2 mg CHEW Q1H PRN 01/07/21 18:30 Nicotine [Habitrol] 21 mg TRDERM DAILY 01/07/21 23:00 cefOXitin [Mefoxin] 2 gm Sodium Chloride 0.9% [Normal Saline] 50 ml IV Q6H 01/08/21 06:00 Doxycycline [Vibramycin] 100 mg Sodium Chloride 0.9% [Normal Saline] 100 ml IV Q12H 01/08/21 09:00 Amphetamine/Dextroamphetamine [Adderall XR] 20 mg PO DAILY 01/08/21 10:54 HIV RAPID SCREEN RLFX COMFIRM [CHEM] Routine 01/09/21 05:00 BASIC METABOLIC PANEL,BMP [CHEM] Timed CBC WITH AUTO DIFF [HEME] Timed - Plan Plan:: ASSESSMENT AND PLAN PELVIC INFLAMMATORY DISEASE-likely secondary to her IUD. IUD was removed at the time of pelvic exam. She was noted to have jean paul pus on exam and cultures are pending. Improved from admission with less abdominal pain -Pain and nausea medication as needed -Cefoxitin 2 g IV every 6 hours -Doxycycline 100 mg IV every 12 hours -IV fluids for hydration MAINTENANCE ISSUES -DVT prophylaxis; ambulation -GI prophylaxis; not indicated -Sloan catheter; not indicated -Nutrition; regular diet -Nicotine dependence; nicotine patch and nicotine gum CODE STATUS-FULL CODE ADMISSION STATUS-patient will be admitted to inpatient status, expect at least a 2 night hospital stay for evaluation and management of problems as outlined above. At the time of this admission I do not reasonably expected evaluation and management of this problem will require more than a 96 hour hospital stay. DISPOSITION-anticipate discharge to home after the hospital stay.
[2021-01-09] MEDS: cefOXitin 2 GM in Sodium Chloride 0.9% 50 ML IV SCH ×3 (04:03→17:01)
[2021-01-09] MEDS: HYDROmorphone 0.5 MG/0.5 ML Syringe IVPUSH PRN (04:05)
[2021-01-09] MEDS: Sodium Chloride 0.9% 1,000 ML IV SCH (05:04)
[2021-01-09] MEDS: Doxycycline 100 MG in Sodium Chloride 0.9% 100 ML IV SCH ×2 (05:05→17:39)
[2021-01-09] MEDS: Amphetamine/Dextroamphetamine Salts 10 MG Cap.ER PO SCH (08:55)
[2021-01-09] MEDS: Nicotine 21 MG/24 Hr Patch TRDERM SCH (08:55)
[2021-01-09] MEDS ORDERED: oxyCODONE 5 MG Tab PO PRN (10:45)
--- NOTE | 2021-01-09 10:49 | PCM.PN ---
- General Info Date of Service: 01/09/21 Subjective Update: Ms. Clement has been stable since yesterday. While abdominal pain has not resolved it has improved further and she has remained afebrile. Functional Status: Reports: Tolerating Diet, Ambulating, Urinating - Review of Systems General: Reports: No Symptoms Pulmonary: Reports: No Symptoms Cardiovascular: Reports: No Symptoms Gastrointestinal: Reports: Abdominal Pain. Denies: Diarrhea, Difficulty Swallowing, Hematochezia, Melena, Nausea, Vomiting Genitourinary: Reports: No Symptoms - Patient Data Vitals - Most Recent: Last Vital Signs Temp 97.3 F 01/09/21 07:15 Pulse 79 01/09/21 07:15 Resp 18 01/09/21 07:15 BP 104/56 L 01/09/21 07:15 Pulse Ox 98 01/09/21 07:15 Weight - Most Recent: 219 lb 12.8 oz I&O - Last 24 Hours: Intake & Output 01/08/21 01/09/21 01/09/21 22:59 06:59 14:59 Intake Total 1050 2514 Balance 1050 2514 Lab Results Last 24 Hours: Laboratory Results - last 24 hr 01/08/21 01/09/21 01/09/21 Range/Units 04:43 04:44 04:44 WBC 6.8 (4.5-11.0) K/uL RBC 3.82 (3.30-5.50) M/uL Hgb 11.0 L (12.0-15.0) g/dL Hct 34.5 L (36.0-48.0) % MCV 90 (80-98) fL MCH 29 (27-31) pg MCHC 32 (32-36) % Plt Count 168 (150-400) K/uL Neut % (Auto) 64.0 (36-66) % Lymph % (Auto) 28.7 (24-44) % [place] % (Auto) 5.7 (2-6) % Eos % (Auto) 1.3 L (2-4) % Baso % (Auto) 0.3 (0-1) % Sodium 141 (140-148) mmol/L Potassium 3.9 (3.6-5.2) mmol/L Chloride 107 (100-108) mmol/L Carbon Dioxide 24 (21-32) mmol/L Anion Gap 9.9 (5.0-14.0) mmol/L BUN 6 L D (7-18) mg/dL Creatinine 0.8 (0.6-1.0) mg/dL Est Cr Clr Drug Dosing 96.18 mL/min Estimated GFR (MDRD) > 60 (>60) Glucose 88 (74-106) mg/dL Calcium 8.3 L (8.5-10.1) mg/dL HIV-1 Ab Rapid Screen Non-reactive (NON-REACT.) Junior Results Last 24 Hours: Microbiology 01/07/21 16:33 Genital Culture - Preliminary Cervical/Endocervical Med Orders - Current: Current Medications Acetaminophen (Acetaminophen 325 Mg Tab) 650 mg PO Q4H PRN PRN Reason: Pain (Mild 1-3)/fever Amphetamine/Dextroamphetamine (Amphetamine/Dextroamphetamine Salts 10 Mg Cap.Er) 20 mg PO DAILY [facility] Last Admin: 01/09/21 08:55 Dose: Not Given Documented by: Docusate Sodium (Docusate Sodium 100 Mg Cap) 200 mg PO BID [facility] Doxycycline Hyclate 100 mg/ (Sodium Chloride) 100 mls @ 100 mls/hr IV Q12H [facility] Last Admin: 01/09/21 05:05 Dose: 100 mls/hr Documented by: Cefoxitin Sodium 2 gm/ Sodium (Chloride) 50 mls @ 100 mls/hr IV Q6H [facility] Last Admin: 01/09/21 04:03 Dose: 100 mls/hr Documented by: Nicotine (Nicotine 21 Mg/24 Hr Patch) 21 mg TRDERM DAILY [facility] Last Admin: 01/09/21 08:55 Dose: Not Given Documented by: Nicotine Polacrilex (Nicotine Polacrilex 2 Mg Gum) 2 mg CHEW Q1H PRN PRN Reason: Other Ondansetron HCl (Ondansetron 4 Mg/2 Ml Sdv) 4 mg IV Q4H PRN PRN Reason: Nausea/Vomiting Oxycodone HCl (Oxycodone 5 Mg Tab) 5 mg PO Q4H PRN PRN Reason: Pain Polyethylene Glycol (Polyethylene Glycol 3350 Powder 17 Gm Packet) 17 gm PO DAILY PRN PRN Reason: Constipation Sodium Chloride (Sodium Chloride 0.9% 10 Ml Syringe) 10 ml FLUSH ASDIRECTED PRN PRN Reason: Keep Vein Open Discontinued Medications Doxycycline Hyclate (Doxycycline 100 Mg Cap) 100 mg PO ONETIME ONE Stop: 01/07/21 16:34 Last Admin: 01/07/21 16:45 Dose: 100 mg Documented by: Hydromorphone HCl (Hydromorphone 0.5 Mg/0.5 Ml Syringe) 0.5 mg IVPUSH ONETIME ONE Stop: 01/07/21 12:49 Last Admin: 01/07/21 13:09 Dose: 0.5 mg Documented by: Hydromorphone HCl (Hydromorphone 0.5 Mg/0.5 Ml Syringe) 0.5 mg IVPUSH ONETIME ONE Stop: 01/07/21 15:23 Last Admin: 01/07/21 15:26 Dose: 0.5 mg Documented by: Hydromorphone HCl (Hydromorphone 0.5 Mg/0.5 Ml Syringe) 0.5 mg IVPUSH Q2H PRN PRN Reason: Pain Last Admin: 01/09/21 04:05 Dose: 0.5 mg Documented by: Sodium Chloride (Normal Saline) 90 mls @ 3.5 [facility]ls[facility] Last Admin: 01/07/21 13:39 Dose: 3.5 mls/sec Documented by: Cefoxitin Sodium 2 gm/ Sodium (Chloride) 50 mls @ 100 mls/hr IV ONETIME ONE Stop: 01/07/21 17:01 Last Admin: 01/07/21 16:44 Dose: 100 mls/hr Documented by: Sodium Chloride (Normal Saline) 1,000 mls @ 125 [facility]ls[facility] Last Admin: 01/09/21 05:04 Dose: 125 mls/hr Documented by: Iopamidol (Iopamidol 612 Mg/Ml 500 Ml Multipack Bottle) 150 ml IV ONETIME ONE Stop: 01/07/21 13:31 Last Admin: 01/07/21 13:39 Dose: 150 ml Documented by: Ketorolac Tromethamine (Ketorolac 30 Mg/Ml Sdv) 30 mg IVPUSH ONETIME ONE Stop: 01/07/21 16:30 Last Admin: 01/07/21 16:46 Dose: 30 mg Documented by: Ondansetron HCl (Ondansetron 4 Mg Tab.Dis) 4 mg PO ONETIME ONE Stop: 01/07/21 12:52 Last Admin: 01/07/21 13:04 Dose: 4 mg Documented by: Simethicone (Simethicone 80 Mg Tab.Chew) 160 mg PO ONETIME ONE Stop: 01/07/21 15:22 Last Admin: 01/07/21 15:26 Dose: 160 mg Documented by: Sodium Chloride (Sodium Chloride 0.9% 10 Ml Syringe) 10 ml FLUSH ASDIRECTED PRN PRN Reason: Keep Vein Open Last Admin: 01/07/21 13:09 Dose: 10 ml Documented by: - Exam General: Alert, Oriented, Cooperative, Mild Distress Lungs: Clear to Auscultation, Normal Respiratory Effort Cardiovascular: Regular Rate, Regular Rhythm, No Murmurs GI/Abdominal Exam: Soft, No Organomegaly, Tender. No: Distended, Guarding, Rigid, Rebound Extremities: Non-Tender, No Pedal Edema - Patient Data Lab Results Last 24 hrs: Laboratory Results - last 24 hr 01/08/21 01/09/21 01/09/21 Range/Units 04:43 04:44 04:44 WBC 6.8 (4.5-11.0) K/uL RBC 3.82 (3.30-5.50) M/uL Hgb 11.0 L (12.0-15.0) g/dL Hct 34.5 L (36.0-48.0) % MCV 90 (80-98) fL MCH 29 (27-31) pg MCHC 32 (32-36) % Plt Count 168 (150-400) K/uL Neut % (Auto) 64.0 (36-66) % Lymph % (Auto) 28.7 (24-44) % [place] % (Auto) 5.7 (2-6) % Eos % (Auto) 1.3 L (2-4) % Baso % (Auto) 0.3 (0-1) % Sodium 141 (140-148) mmol/L Potassium 3.9 (3.6-5.2) mmol/L Chloride 107 (100-108) mmol/L Carbon Dioxide 24 (21-32) mmol/L Anion Gap 9.9 (5.0-14.0) mmol/L BUN 6 L D (7-18) mg/dL Creatinine 0.8 (0.6-1.0) mg/dL Est Cr Clr Drug Dosing 96.18 mL/min Estimated GFR (MDRD) > 60 (>60) Glucose 88 (74-106) mg/dL Calcium 8.3 L (8.5-10.1) mg/dL HIV-1 Ab Rapid Screen Non-reactive (NON-REACT.) Result Diagrams: 01/09/21 04:44 01/09/21 04:44 Junior Results Last 24 hrs: Microbiology 01/07/21 16:33 Genital Culture - Preliminary Cervical/Endocervical Sepsis Event Note - Evaluation Sepsis Screening Result: No Definite Risk - Focused Exam Vital Signs: Vital Signs Temp Temp Pulse Resp BP Pulse Ox 01/09/21 07:15 97.3 F 79 18 104/56 L 98 01/09/21 06:47 97 01/09/21 04:01 96.1 F L 73 16 112/56 L 98 01/09/21 00:44 97 - Problem List Review Problem List Initiated/Reviewed/Updated: Yes - My Orders Last 24 Hours: My Active Orders 01/09/21 10:44 Convert IV to Saline Lock [OM.PC] Routine 01/09/21 10:45 Docusate Sodium [Colace] 200 mg PO BID oxyCODONE 5 mg PO Q4H PRN - Plan Plan:: ASSESSMENT AND PLAN PELVIC INFLAMMATORY DISEASE-likely secondary to her IUD. IUD was removed at the time of pelvic exam. She was noted to have jean paul pus on exam and cultures are pending. Improved from admission with less abdominal pain -Pain and nausea medication as needed -Cefoxitin 2 g IV every 6 hours -Doxycycline 100 mg IV every 12 hours -Saline lock IV MAINTENANCE ISSUES -DVT prophylaxis; ambulation -GI prophylaxis; not indicated -Sloan catheter; not indicated -Nutrition; regular diet -Nicotine dependence; nicotine patch and nicotine gum CODE STATUS-FULL CODE ADMISSION STATUS-patient will be admitted to inpatient status, expect at least a 2 night hospital stay for evaluation and management of problems as outlined above. At the time of this admission I do not reasonably expected evaluation and management of this problem will require more than a 96 hour hospital stay. DISPOSITION-anticipate discharge to home after the hospital stay.
[2021-01-09] MEDS: Docusate Sodium 100 MG Cap PO SCH ×2 (11:07→20:57)
[2021-01-09] MEDS: cefTRIAXone 1 GM in Sodium Chloride 0.9% 50 ML IV SCH (18:47)
[2021-01-10] MEDS: Doxycycline 100 MG in Sodium Chloride 0.9% 100 ML IV SCH ×2 (05:09→18:01)
[2021-01-10] MEDS: Nicotine 21 MG/24 Hr Patch TRDERM SCH (08:22)
[2021-01-10] MEDS: Docusate Sodium 100 MG Cap PO SCH (08:22)
[2021-01-10] MEDS: Amphetamine/Dextroamphetamine Salts 10 MG Cap.ER PO SCH (08:22)
--- NOTE | 2021-01-10 10:40 | PCM.PN ---
- General Info Date of Service: 01/10/21 Subjective Update: Ms. Clement has remained stable over the last 24 hours and has experienced further improvement in her abdominal pain. Vital signs have been stable and she has remained afebrile. Cultures from pelvic exam are growing gonorrhea. Functional Status: Reports: Tolerating Diet, Ambulating, Urinating - Review of Systems General: Reports: No Symptoms Pulmonary: Reports: No Symptoms Cardiovascular: Reports: No Symptoms Gastrointestinal: Reports: Abdominal Pain. Denies: Diarrhea, Difficulty Swallowing, Hematochezia, Melena, Nausea, Vomiting Genitourinary: Reports: No Symptoms - Patient Data Vitals - Most Recent: Last Vital Signs Temp 98.2 F 01/10/21 08:19 Pulse 85 01/10/21 08:19 Resp 16 01/10/21 08:19 BP 101/61 01/10/21 08:19 Pulse Ox 97 01/10/21 08:19 Weight - Most Recent: 214 lb I&O - Last 24 Hours: Intake & Output 01/09/21 01/10/21 01/10/21 22:59 06:59 14:59 Intake Total 700 300 600 Balance 700 300 600 Junior Results Last 24 Hours: Microbiology 01/07/21 16:33 Genital Culture - Final Cervical/Endocervical Neisseria Gonorrhoeae Med Orders - Current: Current Medications Acetaminophen (Acetaminophen 325 Mg Tab) 650 mg PO Q4H PRN PRN Reason: Pain (Mild 1-3)/fever Last Admin: 01/09/21 17:11 Dose: 650 mg Documented by: Amphetamine/Dextroamphetamine (Amphetamine/Dextroamphetamine Salts 10 Mg Cap.Er) 20 mg PO DAILY [facility] Last Admin: 01/10/21 08:22 Dose: Not Given Documented by: Docusate Sodium (Docusate Sodium 100 Mg Cap) 200 mg PO BID [facility] Last Admin: 01/10/21 08:22 Dose: 200 mg Documented by: Doxycycline Hyclate 100 mg/ (Sodium Chloride) 100 mls @ 100 mls/hr IV Q12H [facility] Last Admin: 01/10/21 05:09 Dose: 100 mls/hr Documented by: Ceftriaxone Sodium 1 gm/ (Sodium Chloride) 50 mls @ 100 mls/hr IV Q24H [facility] Last Admin: 01/09/21 18:47 Dose: 100 mls/hr Documented by: Nicotine (Nicotine 21 Mg/24 Hr Patch) 21 mg TRDERM DAILY [facility] Last Admin: 01/10/21 08:22 Dose: Not Given Documented by: Nicotine Polacrilex (Nicotine Polacrilex 2 Mg Gum) 2 mg CHEW Q1H PRN PRN Reason: Other Ondansetron HCl (Ondansetron 4 Mg/2 Ml Sdv) 4 mg IV Q4H PRN PRN Reason: Nausea/Vomiting Oxycodone HCl (Oxycodone 5 Mg Tab) 5 mg PO Q4H PRN PRN Reason: Pain Polyethylene Glycol (Polyethylene Glycol 3350 Powder 17 Gm Packet) 17 gm PO DAILY PRN PRN Reason: Constipation Sodium Chloride (Sodium Chloride 0.9% 10 Ml Syringe) 10 ml FLUSH ASDIRECTED PRN PRN Reason: Keep Vein Open Discontinued Medications Doxycycline Hyclate (Doxycycline 100 Mg Cap) 100 mg PO ONETIME ONE Stop: 01/07/21 16:34 Last Admin: 01/07/21 16:45 Dose: 100 mg Documented by: Hydromorphone HCl (Hydromorphone 0.5 Mg/0.5 Ml Syringe) 0.5 mg IVPUSH ONETIME ONE Stop: 01/07/21 12:49 Last Admin: 01/07/21 13:09 Dose: 0.5 mg Documented by: Hydromorphone HCl (Hydromorphone 0.5 Mg/0.5 Ml Syringe) 0.5 mg IVPUSH ONETIME ONE Stop: 01/07/21 15:23 Last Admin: 01/07/21 15:26 Dose: 0.5 mg Documented by: Hydromorphone HCl (Hydromorphone 0.5 Mg/0.5 Ml Syringe) 0.5 mg IVPUSH Q2H PRN PRN Reason: Pain Last Admin: 01/09/21 04:05 Dose: 0.5 mg Documented by: Sodium Chloride (Normal Saline) 90 mls @ 3.5 mls/sec IV ASDIRECTED [facility] Last Admin: 01/07/21 13:39 Dose: 3.5 mls/sec Documented by: Cefoxitin Sodium 2 gm/ Sodium (Chloride) 50 mls @ 100 mls/hr IV ONETIME ONE Stop: 01/07/21 17:01 Last Admin: 01/07/21 16:44 Dose: 100 mls/hr Documented by: Sodium Chloride (Normal Saline) 1,000 mls @ 125 mls/hr IV ASDIRECTED [facility] Last Admin: 01/09/21 05:04 Dose: 125 mls/hr Documented by: Cefoxitin Sodium 2 gm/ Sodium (Chloride) 50 mls @ 100 mls/hr IV Q6H [facility] Last Admin: 01/09/21 17:01 Dose: 100 mls/hr Documented by: Iopamidol (Iopamidol 612 Mg/Ml 500 Ml Multipack Bottle) 150 ml IV ONETIME ONE Stop: 01/07/21 13:31 Last Admin: 01/07/21 13:39 Dose: 150 ml Documented by: Ketorolac Tromethamine (Ketorolac 30 Mg/Ml Sdv) 30 mg IVPUSH ONETIME ONE Stop: 01/07/21 16:30 Last Admin: 01/07/21 16:46 Dose: 30 mg Documented by: Ondansetron HCl (Ondansetron 4 Mg Tab.Dis) 4 mg PO ONETIME ONE Stop: 01/07/21 12:52 Last Admin: 01/07/21 13:04 Dose: 4 mg Documented by: Simethicone (Simethicone 80 Mg Tab.Chew) 160 mg PO ONETIME ONE Stop: 01/07/21 15:22 Last Admin: 01/07/21 15:26 Dose: 160 mg Documented by: Sodium Chloride (Sodium Chloride 0.9% 10 Ml Syringe) 10 ml FLUSH ASDIRECTED PRN PRN Reason: Keep Vein Open Last Admin: 01/07/21 13:09 Dose: 10 ml Documented by: - Exam General: Alert, Oriented, Cooperative, Mild Distress Lungs: Clear to Auscultation, Normal Respiratory Effort Cardiovascular: Regular Rate, Regular Rhythm, No Murmurs GI/Abdominal Exam: Soft, No Organomegaly, No Distention, Tender. No: Distended, Guarding, Rigid, Rebound Back Exam: Normal Inspection, Full Range of Motion - Patient Data Result Diagrams: 01/09/21 04:44 01/09/21 04:44 Junior Results Last 24 hrs: Microbiology 01/07/21 16:33 Genital Culture - Final Cervical/Endocervical Neisseria Gonorrhoeae Sepsis Event Note - Evaluation Sepsis Screening Result: No Definite Risk - Focused Exam Vital Signs: Vital Signs Temp Temp Pulse Resp BP Pulse Ox 01/10/21 08:19 98.2 F 85 16 101/61 97 01/10/21 05:13 97.7 F 87 18 101/56 L 97 01/09/21 22:42 97.6 F 68 16 100/54 L 97 - Problem List Review Problem List Initiated/Reviewed/Updated: Yes - My Orders Last 24 Hours: My Active Orders 01/09/21 10:44 Convert IV to Saline Lock [OM.PC] Routine 01/09/21 10:45 Docusate Sodium [Colace] 200 mg PO BID oxyCODONE 5 mg PO Q4H PRN 01/09/21 18:00 cefTRIAXone [Rocephin] 1 gm Sodium Chloride 0.9% [Normal Saline] 50 ml IV Q24H - Plan Plan:: ASSESSMENT AND PLAN PELVIC INFLAMMATORY DISEASE-cultures from pelvic exam have grown gonorrhea -Pain and nausea medication as needed -Ceftriaxone 1 g IV every 24 hours -Doxycycline 100 mg IV every 12 hours - will need to be treated by his primary care provider -Saline lock IV MAINTENANCE ISSUES -DVT prophylaxis; ambulation -GI prophylaxis; not indicated -Sloan catheter; not indicated -Nutrition; regular diet -Nicotine dependence; nicotine patch and nicotine gum CODE STATUS-FULL CODE ADMISSION STATUS-patient will be admitted to inpatient status, expect at least a 2 night hospital stay for evaluation and management of problems as outlined above. At the time of this admission I do not reasonably expected evaluation and management of this problem will require more than a 96 hour hospital stay. DISPOSITION-anticipate discharge to home tomorrow
[2021-01-10] MEDS: cefTRIAXone 1 GM in Sodium Chloride 0.9% 50 ML IV SCH (17:10)
[2021-01-10 17:13] LABS: CHLAMYDIA TRACHOMATIS, NAA Negative (Negative); NEISSERIA GONORRHOEAE, NAA Positive (Negative)
--- NOTE | 2021-01-10 17:30 | PCM.DCSUM1 ---
Discharge Summary - Hospital Course Brief History: Ms. Clement is a 40-year-old woman who was admitted through the emergency department with abdominal pain and early sepsis secondary to pelvic inflammatory disease. - Discharge Data Discharge Date: 01/11/21 Discharge Disposition: Home, Self-Care 01 Condition: Good - Referral to Home Health Primary Care Physician: PCP None - Discharge Diagnosis/Problem(s) (1) Neisseria gonorrhoeae SNOMED Code(s): 65080333 ICD Code: A54.9 - GONOCOCCAL INFECTION, UNSPECIFIED Status: Acute (2) PID (acute pelvic inflammatory disease) SNOMED Code(s): 593898926 ICD Code: N73.0 - ACUTE PARAMETRITIS AND PELVIC CELLULITIS Status: Acute - Patient Summary/Data Hospital Course: Ms. Clement is a 40-year-old woman who was admitted through the emergency department with abdominal pain and nausea secondary to pelvic inflammatory disease. She had not felt well over the past 2 days, during that period of time developed progressive abdominal pain, nausea, and fever. Symptoms were very severe so she presented to the emergency department for further evaluation. White blood cell count is elevated, but CT scan showed no obvious cause of symptoms other than mild inflammation in the pelvis. Pelvic exam was performed by Dr. Morris and did show jean paul pus coming from the cervix. She did have an IUD in place and this was removed at the time of pelvic exam. Cultures were obtained and she has been started on IV antibiotic therapy with cefoxitin and doxycycline. She is otherwise very healthy and denies any other recent symptoms. On admission to the hospital she was given IV fluids for hydration, as well as pain medication and medication as needed for nausea. Antibiotic therapy was continued with cefoxitin and doxycycline. Cultures from pelvic exam did grow out gonorrhea, cefoxitin was discontinued and she was placed on ceftriaxone. Abdominal pain and fever gradually improved throughout hospital stay with normalization of her white blood cell count. By the time of discharge she was experiencing only minimal pelvic pain and had been afebrile for 48 hours. She will be discharged home on oral antibiotic therapy with doxycycline and cefixime for an additional 10 days. Follow-up appointment will be scheduled with her primary care provider within 1 week. Activity will be as tolerated and she will resume her usual diet. She is aware that her should see his primary care provider and be treated for gonorrhea. - Patient Instructions Diet: Regular Diet as Tolerated Activity: As Tolerated Driving: May Drive Today Showering/Bathing: May Shower Notify Provider of: Fever, Increased Pain, Drainage - Discharge Plan *PRESCRIPTION DRUG MONITORING PROGRAM REVIEWED*: Not Applicable *COPY OF PRESCRIPTION DRUG MONITORING REPORT IN PATIENT MCKENZIE: Not Applicable Prescriptions/Med Rec: ceFIXime [Cefixime] 400 mg PO DAILY #10 capsule Doxycycline [Vibramycin] 100 mg PO BID #20 cap Home Medications: Home Meds Amphetamine/Dextroamphetamine [Adderall XR] 20 mg PO DAILY 01/07/21 [History] Doxycycline [Vibramycin] 100 mg PO BID #20 cap 01/10/21 [Rx] ceFIXime [Cefixime] 400 mg PO DAILY #10 capsule 01/10/21 [Rx] Patient Handouts: Cefixime Oral Tablets or Capsules, Doxycycline tablets or capsules, Pelvic Inflammatory Disease, [id number] Forms: ED Department Discharge - Discharge Summary/Plan Comment DC Time >30 min.: No Total # of Minutes for Discharge Time: 20 - Patient Data Vitals - Most Recent: Last Vital Signs Temp 97.5 F 01/10/21 14:06 Pulse 90 01/10/21 14:06 Resp 18 01/10/21 14:06 BP 119/72 01/10/21 14:06 Pulse Ox 97 01/10/21 14:06 Weight - Most Recent: 214 lb I&O - Last 24 hours: Intake & Output 01/10/21 01/10/21 01/10/21 06:59 14:59 22:59 Intake Total 300 600 Balance 300 600 Lab Results - Last 24 hrs: Laboratory Results - last 24 hr 01/07/21 Range/Units 16:37 C. trachomatis ([facility]) Negative (Negative) N.gonorrhoeae DNA ([facility]) Positive H (Negative) LEEROY Results - Last 24 hrs: Microbiology 01/07/21 16:33 Genital Culture - Final Cervical/Endocervical Neisseria Gonorrhoeae Med Orders - Current: Current Medications Acetaminophen (Acetaminophen 325 Mg Tab) 650 mg PO Q4H PRN PRN Reason: Pain (Mild 1-3)/fever Last Admin: 01/09/21 17:11 Dose: 650 mg Documented by: Amphetamine/Dextroamphetamine (Amphetamine/Dextroamphetamine Salts 10 Mg Cap.Er) 20 mg PO DAILY [facility] Last Admin: 01/10/21 08:22 Dose: Not Given Documented by: Docusate Sodium (Docusate Sodium 100 Mg Cap) 200 mg PO BID [facility] Last Admin: 01/10/21 08:22 Dose: 200 mg Documented by: Doxycycline Hyclate 100 mg/ (Sodium Chloride) 100 mls @ 100 mls/hr IV Q12H [facility] Last Admin: 01/10/21 05:09 Dose: 100 mls/hr Documented by: Ceftriaxone Sodium 1 gm/ (Sodium Chloride) 50 mls @ 100 mls/hr IV Q24H [facility] Last Admin: 01/10/21 17:10 Dose: 100 mls/hr Documented by: Nicotine (Nicotine 21 Mg/24 Hr Patch) 21 mg TRDERM DAILY [facility] Last Admin: 01/10/21 08:22 Dose: Not Given Documented by: Nicotine Polacrilex (Nicotine Polacrilex 2 Mg Gum) 2 mg CHEW Q1H PRN PRN Reason: Other Ondansetron HCl (Ondansetron 4 Mg/2 Ml Sdv) 4 mg IV Q4H PRN PRN Reason: Nausea/Vomiting Oxycodone HCl (Oxycodone 5 Mg Tab) 5 mg PO Q4H PRN PRN Reason: Pain Polyethylene Glycol (Polyethylene Glycol 3350 Powder 17 Gm Packet) 17 gm PO DAILY PRN PRN Reason: Constipation Sodium Chloride (Sodium Chloride 0.9% 10 Ml Syringe) 10 ml FLUSH ASDIRECTED PRN PRN Reason: Keep Vein Open Discontinued Medications Doxycycline Hyclate (Doxycycline 100 Mg Cap) 100 mg PO ONETIME ONE Stop: 01/07/21 16:34 Last Admin: 01/07/21 16:45 Dose: 100 mg Documented by: Hydromorphone HCl (Hydromorphone 0.5 Mg/0.5 Ml Syringe) 0.5 mg IVPUSH ONETIME ONE Stop: 01/07/21 12:49 Last Admin: 01/07/21 13:09 Dose: 0.5 mg Documented by: Hydromorphone HCl (Hydromorphone 0.5 Mg/0.5 Ml Syringe) 0.5 mg IVPUSH ONETIME ONE Stop: 01/07/21 15:23 Last Admin: 01/07/21 15:26 Dose: 0.5 mg Documented by: Hydromorphone HCl (Hydromorphone 0.5 Mg/0.5 Ml Syringe) 0.5 mg IVPUSH Q2H PRN PRN Reason: Pain Last Admin: 01/09/21 04:05 Dose: 0.5 mg Documented by: Sodium Chloride (Normal Saline) 90 mls @ 3.5 mls/sec IV ASDIRECTED [facility] Last Admin: 01/07/21 13:39 Dose: 3.5 mls/sec Documented by: Cefoxitin Sodium 2 gm/ Sodium (Chloride) 50 mls @ 100 mls/hr IV ONETIME ONE Stop: 01/07/21 17:01 Last Admin: 01/07/21 16:44 Dose: 100 mls/hr Documented by: Sodium Chloride (Normal Saline) 1,000 mls @ 125 mls/hr IV ASDIRECTED [facility] Last Admin: 01/09/21 05:04 Dose: 125 mls/hr Documented by: Cefoxitin Sodium 2 gm/ Sodium (Chloride) 50 mls @ 100 mls/hr IV Q6H [facility] Last Admin: 01/09/21 17:01 Dose: 100 mls/hr Documented by: Iopamidol (Iopamidol 612 Mg/Ml 500 Ml Multipack Bottle) 150 ml IV ONETIME ONE Stop: 01/07/21 13:31 Last Admin: 01/07/21 13:39 Dose: 150 ml Documented by: Ketorolac Tromethamine (Ketorolac 30 Mg/Ml Sdv) 30 mg IVPUSH ONETIME ONE Stop: 01/07/21 16:30 Last Admin: 01/07/21 16:46 Dose: 30 mg Documented by: Ondansetron HCl (Ondansetron 4 Mg Tab.Dis) 4 mg PO ONETIME ONE Stop: 01/07/21 12:52 Last Admin: 01/07/21 13:04 Dose: 4 mg Documented by: Simethicone (Simethicone 80 Mg Tab.Chew) 160 mg PO ONETIME ONE Stop: 01/07/21 15:22 Last Admin: 01/07/21 15:26 Dose: 160 mg Documented by: Sodium Chloride (Sodium Chloride 0.9% 10 Ml Syringe) 10 ml FLUSH ASDIRECTED PRN PRN Reason: Keep Vein Open Last Admin: 01/07/21 13:09 Dose: 10 ml Documented by: - Exam General: Reports: Alert, Oriented, Cooperative, Mild Distress Lungs: Reports: Clear to Auscultation, Normal Respiratory Effort Cardiovascular: Reports: Regular Rate, Regular Rhythm, No Murmurs GI/Abdominal Exam: Soft, No Organomegaly, Tender. No: Distended, Guarding, Rigid, Rebound Extremities: Non-Tender, No Pedal Edema
== END 2021-01-10 18:21 | disposition home or self-care (01) | DRG 872 ==
LOC: JP.ED 11:50 → JP.MS 16:46
PROVIDERS: ADMIT Hospitalist; ATTEND Hospitalist
PROC: 0UPDXHZ Removal of Contraceptive Device from Uterus and Cervix, External Approach (ICD-10-PCS; principal; 2021-01-07)
DX: A41.9 Sepsis, unspecified organism (principal); N73.0 Acute parametritis and pelvic cellulitis; A54.24 Gonococcal female pelvic inflammatory disease; F98.8 Other specified behavioral and emotional disorders with onset usually occurring in childhood and adolescence; Z79.899 Other long term (current) drug therapy; Z97.5 Presence of (intrauterine) contraceptive device
CPT/HCPCS: 36415; 74177; 80048; 80053; 81001; 85025; 85027; 86140; 87070; 87077; 87449; 87491; 87591; 94762; 96374; 99285-25; A9270-GY; J0694; J0696; J1170; J1885; J3490; J7030; Q9967